=== PATIENT | female | born 1990 | race Caucasian/White ===

== ENCOUNTER 2018-05-25 20:23 | Emergency (ER) | payer OTHER ==
[~2018-05-25] VITALS: Ht 170.2 cm; Wt 138.3 kg
[2018-05-25 20:36] VITALS: Ht 170.2 cm; Wt 138.3 kg
[2018-05-25 21:15] VITALS: BP 117/77
== END 2018-05-25 21:58 | disposition home or self-care (01) ==
LOC: ED 20:23
DX: F41.9 Anxiety disorder, unspecified (principal); R20.2 Paresthesia of skin
CPT/HCPCS: Q0092